=== PATIENT | male | born 1985 | race Caucasian/White ===

== ENCOUNTER 2021-01-05 09:58 | Outpatient (REF) | payer OTHER, SELFPAY ==
[2021-01-06 05:31] LABS: Lyme Abs Screen <0.90 index
== END 2021-01-05 09:59 | disposition home or self-care (01) ==
LOC: HO.LAB 09:58
PROVIDERS: PCP Internal Medicine; Visit Provider Psychiatry & Neurology Neurology
DX: R20.2 Paresthesia of skin (principal)
CPT/HCPCS: 36415; 86617; 86618